=== PATIENT | female | born 1975 | race Caucasian/White ===

== ENCOUNTER 2016-10-19 10:48 | Day surgery (SDC) | payer OTHER ==
[~2016-10-19 10:48] MED LIST: DIPRIVAN 200 MG/20 ML IV ONE; Kenalog-40 IM ONE; Sensorcaine 0.25% 10 ML IJ ONE
[2016-10-19] MEDS ORDERED: Lactated Ringers 1,000 ML IV ONE (10:51)
[2016-10-19] MEDS ORDERED: Lactated Ringers 1,000 ML IV SCH (11:00)
[2016-10-19 13:35] VITALS: BP 110/69; PULSE 77; O2SAT 98
--- NOTE | 2016-10-19 15:08 | XRAY ---
Indication: Right L2-L5 medial branch block. Intraoperative fluoroscopy was provided for 10 seconds. Single digital spot image submitted for interpretation demonstrates 4 posterior spinal needles with the tips projecting over the expected course of the right L2-L5 nerve roots. Correlate with intraoperative findings/report.
--- NOTE | 2016-10-19 15:40 | XRAY ---
10 seconds fluoroscopy time in surgery for right MBB L2-5.
== END 2016-10-19 15:45 | disposition home or self-care (01) ==
LOC: SDC-PAIN 10:48
PROVIDERS: ATTEND Pain Medicine Interventional Pain Medicine
DX: M79.1 Myalgia (principal); M47.816 Spondylosis without myelopathy or radiculopathy, lumbar region; M54.5 Low back pain; Z79.891 Long term (current) use of opiate analgesic
CPT/HCPCS: 64493; 64494; 64495; 72020; 77003; J2704; J3301